=== PATIENT | female | born 1995 | race Caucasian/White ===

== ENCOUNTER 2025-06-24 09:25 | Day surgery (SDC) | payer BC, SELFPAY ==
[2025-06-24] VITALS (8 sets, daily range): BP systolic 108–122; BP diastolic 67–78; PULSE 65–95; RESP 14–18; TEMP 36.1–36.6; O2SAT 99–100; BMI 33.0
[2025-06-24] MEDS: Lactated Ringers 1,000 ML 15 ML IV (09:53)
[2025-06-24 09:55] LABS: Internal QC Validated? YES +Cl - CLEAR BKGD; Pregnancy, Urine Negative Negative; Record Kit Lot#,Urine Preg 0000947241
--- NOTE | 2025-06-24 10:07 | PCM.PRE.AN2 ---
ASA Classification* ASA Classification ASA Classification: 2 Assessment & Plan Anesthesia* Anesthesia Assessment Anesthesia Assessment: Discussed sedation and/or anesthesia options, risks, benefits, and alternatives with patient/parents/legal guardian/POA. Questions invited. The patient/parents/legal guardian/POA seems to understand and agrees to proceed with anesthesia plan. Reviewed the physical assessment, medical history, allergy history and patient home medications list prior to surgery/procedure/anesthetic and documented any changes. Performed airway and anesthesia risk assessments. Anesthesia Type Anesthesia Type: General History Source History Obtained from:: Patient, Chart and Significant Other Anesthesia Focused Assessment* Temperature: 97.9 F Pulse Rate: 68 Blood Pressure: 108/78 Respiratory Rate: 16 Pulse Ox: 100 Oxygen Delivery Method: Room Air Airway Assessment Mouth opens: >3 cm Mallampati Score: II Teeth Condition: Intact Neck Range of motion (ROM): Full ROM Labs Anesthesia Preop lab: CBC CHEMISTRY COAG Urine Test Negative Negative 06/24/25 09:33 06/24/25 Pre-Assessment Diagnosis/Proposed Procedure Planned Operative Procedure(s): EXC OF L UPPER BACK/SHOULDER Anesthesia History Anesthesia History - supervisor line department: Anesthesia History - supervisor line department Hx Hospitalization Yes: PSYCH 04/202506/10/25 10:12 Any Problems With Anesthesia No 06/10/25 10:12 Cholinesterase deficiency No 06/10/25 10:12 You/Your Family Experience No 06/10/25 10:12 fever (hyperthermia) with Relationship Recent Exposure to Contagious No 06/24/25 09:45 Disease Does patient have nerve No 06/10/25 10:12 stimulator Patient instructed to have device shut off --Does patient have Pacemaker No 06/24/25 09:45 or ICD? When Was Last Pacemaker Check QUESTION #4 FULL TEXT: You/Your Family Experience fever (hyperthermia) with Anesthesia Last Oral Intake Last Oral intake: Last Oral Intake NPO since 21:00 06/24/25 09:45 Meds taken in AM with sips of Yes 06/24/25 09:45 water? Meds patient instructed to take am of surgery PONV PONV - supervisor line department: PONV - supervisor line department Female Yes 06/10/25 10:12 HX of Motion Sickness No 06/10/25 10:12 HX of N/V After Surgery No 06/10/25 10:12 Non-Smoker Yes 06/10/25 10:12 Duration of Surgery greater No 06/10/25 10:12 than 60 minutes Number of Risk Factors 2 06/10/25 10:12 PONV Score Moderate Risk 06/10/25 10:12 Height & Weight Height & Weight: Anesthesia: Height & Weight Height 5 ft 5 in 06/24/25 09:45 Weight: 90 kg 06/24/25 09:45 Body Mass Index (BMI) 33.0 06/24/25 09:45 Respiratory Assessment Respiratory Assessment - supervisor line department: Respiratory Tract Infection Hx - supervisor line department Hx Respiratory Tract Infection No 06/10/25 10:12 STOP Sleep Apnea STOP Sleep Apnea - supervisor line department: STOP Sleep Apnea - supervisor line department Hx Hypertension No 06/10/25 10:12 Hx Sleep Apnea No 06/10/25 10:12 CPAP BIPAP Do you snore loudly (louder No 06/10/25 10:12 than talking or can be heard Do you often feel tired/ No 06/10/25 10:12 fatigued/ sleepy during daytime? Has anyone observed you stop No 06/10/25 10:12 breathing during sleep? STOP Results Negative 06/10/25 10:12 QUESTION #5 FULL TEXT : Do you snore loudly (louder than talking or can be heard through closed doors)? 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 Specify any problems Hx of Preganancy in last 3 No 06/10/25 10:12 Months Nurse Filling Out Transfusion VCHRISTIN 06/10/25 10:12 & Questions: Date: 06/10/25 06/10/25 10:12 Time: 10:14 06/10/25 10:12 Patient unable to answer at this time (ie. confused, unrespo /Reproduction History /Reproductive History - supervisor line department: /Reproductive Hx- supervisor line department Hx Now No 06/10/25 10:12 Gestational Age (in weeks): EDC: Hx Hx Para Hx Section SAB No 06/10/25 10:12 Active Medications Active Medications: Current Medications Generic Name Dose Route Start Last Admin Trade Name Freq PRN Reason Stop Dose Admin Cefazolin Sodium 2 gm/ Sodium 110 mls @ 200 mls/hr 06/24/25 11:00 Chloride IV 06/24/25 11:32 INTRAOP ONE Lactated Ringer's 1,000 mls @ 15 mls/hr 06/24/25 09:45 06/24/25 09:53 IV 15 mls/hr .Q48H ADRIAN Administration PFSH Medical History Wears glasses Non-smoker Acid reflux Fatigue Anxiety Depression Home Medications ?Medication ?Instructions ?Recorded ?Last Taken ?Type acetaminophen 650 mg 650 mg PO Q12H PRN pain 05/07/25 Unknown History tablet,extended release (Tylenol 8 Hour) cholecalciferol (vitamin D3) 25 25 mcg PO QDAY 05/07/25 Unknown History mcg (1,000 unit) capsule hydroxyzine HCl 25 mg tablet 25 mg PO BID PRN anxiety 05/07/25 Unknown History lithium carbonate 600 mg capsule 900 mg PO QHS 05/07/25 Unknown History multivitamin 1 tab PO QAM 05/07/25 Unknown History B.coagulan,subtilis 1 bill. 1 tab PO DAILY 06/10/25 Unknown History cell-inulin 1 gram-vit C 15 mg chew tablet (Culturelle Probiotic-Prebiotic) aripiprazole 10 mg tablet 5 mg PO DAILY 06/10/25 Unknown History risankizumab-rzaa 150 mg/mL 150 mg subcut .[id number] 06/10/25 Unknown History subcutaneous pen injector (Skyrizi) Allergy/AdvReac Type Severity Reaction Status Date / Time No Known Allergies Allergy Verified 06/24/25 09:45 Family History Aunt CVA (cerebral vascular accident) Aunt Thyroid disorder Autoimmune disease Father Heart disease Hypertension Mother Hypertension Surgical History Hx of wisdom tooth extraction H/O skin graft Social History Smoking Status: Never smoker alcohol intake: current alcohol intake frequency: a few times a month Review of Systems (Anesthesia) ROS Narrative System reviewed and no additional complaints, except as documented.
--- NOTE | 2025-06-24 10:49 | PCM.HP.STD ---
HPI - General General Date of Admission: 06/24/25 Date of Service: 06/24/25 Chief Complaint: Sebaceous cyst of the back HPI Narrative MARIBEL ARAMBULA, is a 29 F who presents for elective excision of a left upper back sebaceous cyst [facility] Medical History Wears glasses Non-smoker Acid reflux Fatigue Anxiety Depression Home Medications ?Medication ?Instructions ?Recorded ?Last Taken ?Type acetaminophen 650 mg 650 mg PO Q12H PRN pain 05/07/25 Unknown History tablet,extended release (Tylenol 8 Hour) cholecalciferol (vitamin D3) 25 25 mcg PO QDAY 05/07/25 Unknown History mcg (1,000 unit) capsule hydroxyzine HCl 25 mg tablet 25 mg PO BID PRN anxiety 05/07/25 Unknown History lithium carbonate 600 mg capsule 900 mg PO QHS 05/07/25 Unknown History multivitamin 1 tab PO QAM 05/07/25 Unknown History B.coagulan,subtilis 1 bill. 1 tab PO DAILY 06/10/25 Unknown History cell-inulin 1 gram-vit C 15 mg chew tablet (Culturelle Probiotic-Prebiotic) aripiprazole 10 mg tablet 5 mg PO DAILY 06/10/25 Unknown History risankizumab-rzaa 150 mg/mL 150 mg subcut .[id number] 06/10/25 Unknown History subcutaneous pen injector (Skyrizi) Allergy/AdvReac Type Severity Reaction Status Date / Time No Known Allergies Allergy Verified 06/24/25 09:45 Family History Aunt CVA (cerebral vascular accident) Aunt Thyroid disorder Autoimmune disease Father Heart disease Hypertension Mother Hypertension Surgical History Hx of wisdom tooth extraction H/O skin graft Social History Smoking Status: Never smoker alcohol intake: current alcohol intake frequency: a few times a month Vital Signs Vital Signs Vital Signs: 06/24/25 09:45 06/24/25 09:45 06/24/25 10:08 Temperature 97.9 F 97.9 F Temperature Source Temporal Pulse Rate 68 68 Respiratory Rate 16 16 Respiratory Pattern Normal Blood Pressure 108/78 108/78 Blood Pressure Mean 88 Blood Pressure Source Monitor Blood Pressure Position Semi-Fowlers Blood Pressure Location Left Arm Pulse Ox 100 100 Oxygen Delivery Method Room Air Room Air Weight Weight: 198 lb 6.656 oz Body Mass Index (BMI) 33.0 Physical Exam Const alert, oriented x3 and no apparent distress Results Lab / Micro Data Labs: Laboratory Results - last 24 hr 06/24/25 09:33: Urine Test Negative Assessment & Plan Assessment/Plan (1) Cyst: PLAN: Plan Patient is a 29-year-old female with recurring sebaceous cyst involving her left upper back. She wished to have this excised but would prefer to have this performed in the operating room versus the office. We discussed the details of the planned procedure and she wishes to proceed. This will begin momentarily
--- NOTE | 2025-06-24 11:00 | CYST_PTH ---
PATIENT: MARIBEL ARAMBULA LOC: [facility] [place] U#:[id number] AGE/SX: 29/F ROOM: RE06/24/[address]: Dr. Navdeep Zepeda MD : 1995 BED: DIS: 06/24/2025 SPEC #: [id number] RECD: 06/24/25 14:13 STATUS: VAL REMargarita #: [id number] ANU: 06/24/25 11:[address]: Navdeep Zepeda DEPT: SURGICAL PATHOLOGY RECD BY: Maxx Dias ENTERED: 06/24/25 14:40 SP TYPE: Cyst OT DR: Geno Primary Care Phys Tissues: A - CYST Procedures: Surgery Specimen Level III HEADER OPERATION: Excision sebaceous cyst left shoulder PRE-OP DIAGNOSIS: Sebaceous cyst TISSUE SUBMITTED: A- Sebaceous cyst MICROSCOPIC DIAGNOSIS A. Skin, left shoulder, cyst, excision: - Epidermal inclusion cyst. MICROSCOPIC DESCRIPTION Slides are reviewed. GROSS DESCRIPTION A. Received in formalin labeled with the patient's name and date of . Designated as sebaceous cyst is a skin and soft tissue excision devoid of orientation, collectively measuring 3.1 x 2.4 x 1.0 cm. Sectioning reveals ugarte-yellow fibrofatty cut surfaces and a 0.8 x 0.8 x 0.5 cm subcutaneous cyst containing sebaceous like material. Flexible Babysitter sections are submitted in [address] 06/24/2025 CPT:49697
[2025-06-24] MEDS: fentaNYL 100 MCG/2 ML Ampul IV (12:11)
[2025-06-24] MEDS: Midazolam 2 MG/2 ML Syringe IV (12:11)
[2025-06-24] MEDS: Cefazolin 1 GM/5 ML Vial 2 GM IV (12:12)
[2025-06-24] MEDS: Lidocaine 1% (5 ml sdv) 5 ML Vial IV (12:12)
[2025-06-24] MEDS: Bupiv/Epi 0.25% 30 ML Vial (12:38)
--- NOTE | 2025-06-24 12:46 | EX.PCM.DISCH ---
Discharge Instructions Diet Discharge Diet: Light diet - advance as tolerated Activity Discharge Activity: Return to Normal Activity and May Shower May shower in (days): 1 Ice area for (Minutes): 30 Dressing / Incision Call your doctor if your incision/area has: Continuous Slow Oozing, Sudden Increased Bleeding, Increased Pain/ Swelling, Increased Redness, Foul Smelling Discharge and Swelling at the incision site Call your doctor if you observe: Fever of 101 or Higher Cleanse incision/area with: Soap & Water Follow Up Care Please Follow Up With: Navdeep Zepeda MD When: 2 weeks Test Results: Test results from this visit will be discussed in further detail at your follow-up appointment, if applicable. Discharge Plan Admission Primary Reason for Your Visit: Excision of sebaceous cyst Attending Provider: Navdeep Zepeda Primary Care Provider: Care Physician,Geno Primary Instructions Print Language: [place] Discharge Orders/Prescriptions Prescriptions: Continued lithium carbonate 600 mg capsule 900 mg PO QHS hydroxyzine HCl 25 mg tablet 25 mg PO BID PRN (Reason: anxiety) cholecalciferol (vitamin D3) 25 mcg (1,000 unit) capsule 25 mcg PO QDAY multivitamin Tablet 1 tab PO QAM acetaminophen [Tylenol 8 Hour] 650 mg tablet extended release 650 mg PO Q12H PRN (Reason: pain) aripiprazole 10 mg tablet 5 mg PO DAILY Culturelle Probiotic-Prebiotic 1 billion cell- 1 gram-15 mg tablet,chewable 1 tab PO DAILY Skyrizi 150 mg/mL pen injector 150 mg subcut .[id number] Referrals / Follow Up: Care Physician,No Primary [Primary Care Provider] - Disposition Disposition (needs filled in before D/C Order can be placed): Home, Self Care
--- NOTE | 2025-06-24 12:51 | EX.PCM.DISCH ---
Discharge Instructions Diet Discharge Diet: Light diet - advance as tolerated Activity May shower in (days): 1 Ice area for (Minutes): 30 Dressing / Incision Call your doctor if your incision/area has: Continuous Slow Oozing, Sudden Increased Bleeding, Increased Pain/ Swelling, Increased Redness, Foul Smelling Discharge and Swelling at the incision site Call your doctor if you observe: Fever of 101 or Higher Cleanse incision/area with: Soap & Water Follow Up Care Please Follow Up With: Navdeep Zepeda MD Test Results: Test results from this visit will be discussed in further detail at your follow-up appointment, if applicable. Discharge Plan Admission Primary Reason for Your Visit: Excision of sebaceous cyst Attending Provider: Navdeep Zepeda Primary Care Provider: Care Physician,Geno Primary Instructions Print Language: [place] Discharge Orders/Prescriptions Prescriptions: Continued lithium carbonate 600 mg capsule 900 mg PO QHS hydroxyzine HCl 25 mg tablet 25 mg PO BID PRN (Reason: anxiety) cholecalciferol (vitamin D3) 25 mcg (1,000 unit) capsule 25 mcg PO QDAY multivitamin Tablet 1 tab PO QAM acetaminophen [Tylenol 8 Hour] 650 mg tablet extended release 650 mg PO Q12H PRN (Reason: pain) aripiprazole 10 mg tablet 5 mg PO DAILY Culturelle Probiotic-Prebiotic 1 billion cell- 1 gram-15 mg tablet,chewable 1 tab PO DAILY Skyrizi 150 mg/mL pen injector 150 mg subcut .[id number] Referrals / Follow Up: Care Physician,No Primary [Primary Care Provider] - Disposition Disposition (needs filled in before D/C Order can be placed): Home, Self Care
--- NOTE | 2025-06-24 12:56 | PCM.OPRPT ---
Problems Associated Problem List Diagnoses (1) Cyst: Procedures Integumentary 114x: 50636 Exc [id number]-[id number] b9+dl 1.1-2 Operative Report (Standard) Operative Information Date of Procedure: 06/24/25 Pre-Operative Diagnosis: Sebaceous cyst of left upper back Post-Operative Diagnosis: Same Surgery/Procedure Performed: Excision of sebaceous cyst of left upper back warehouse sorter: Yes Biomedical Analytical Scientist: Melanie Hernandez Tasks completed by reference library assistant: Closing and Retracting Additional assistant statistician?: No Type of Anesthesia: General RN Documented Start/Stop Times: Operation Date: 06/24/25 11:00 Case Time Into Pre-Op 06/24/25 09:32 Out of Pre-Op 06/24/25 12:05 Anesthesia Start 06/24/25 12:06 Into Room 06/24/25 12:06 Procedure Start 06/24/25 12:27 Procedure End 06/24/25 12:46 Anesthesia End 06/24/25 12:53 Out of Room 06/24/25 12:53 Procedure Start Time: 12:27 Procedure Stop Time: 12:46 Select all DRAINS/GRAFTS/IMPLANTS that apply: None Estimated Blood Loss: Minimal Specimen collected: Yes Description of specimen(s) removed: Sebaceous cyst Description of surgery: The patient is a 29-year-old female recently seen through the office with a sebaceous cyst involving the left upper back. This was I&D and she was placed on antibiotics. It was recommended that we excise this sebaceous cyst so that did not return. We agreed that this would be best performed in the operating room. We discussed the details of the planned procedure including the risks benefits and alternatives. She wished to proceed The patient was brought to the operating today following informed consent. She was placed on the operative table and LMA general anesthesia was induced. Once adequately anesthetized she was rolled in a lateral decubitus position. Appropriate padding and positioning was incorporated. The region of the left upper back was prepped and draped in the usual sterile manner. It was marked preoperatively. Local anesthetic was infiltrated into the vicinity. An ellipse incision was made around the lesion. Bovie electrocautery was then used to dissect down through subcutaneous tissue around the residual sebaceous cyst capsule and contents. The wound was then copiously irrigated. Hemostasis was excellent. The wound was then closed with 2-0 Vicryl and 4-0 Vicryl. Skin glue was applied as dressing. She was awakened from anesthesia and taken recovery in good condition. The residual sebaceous cyst measured about 1.5 cm Surgical Findings: See operative note Complications Complications: No Admit VTE Documentation VTE Present on Admission: No VTE Mechan Device Prophylaxis: SCD's VTE Pharm Prophylaxis ordered?: No Reason prophylaxis not ordered: Treatment Not Indicated
--- NOTE | 2025-06-24 13:00 | PCM.POST.ANE ---
Anesthesia: Postop Eval I Current Vital Signs Temperature: 97 F Pulse Rate: 95 Blood Pressure: 119/67 Respiratory Rate: 16 Pulse Ox: 100 Oxygen Delivery Method: Room Air Assessment Airway patent: Yes Spontaneous unlabored respirations: Yes Mental status: Awake and Calm nausea: No Vomiting: No Anesthesia Complication: No Fluid Hydration Crystalloid volume administer (ml): 800 Total IV fluid infused: 800 Progress Note Anesthesia document: Postop Eval 1 completed: Yes
--- NOTE | 2025-06-24 15:35 | POSTOPAN2_ITS ---
Anesthesia Postop Eval I Sum Postop Eval Completion status Anesthesia document: Postop Eval 1 completed: Yes Anesthesia Postop Eval I Summary Anesthesia Postop Eval I Summary: Anesthesia Postop Eval I: Assessment Summary Airway patent Yes 06/24/25 13:01 PASSENGER AGENT.JDEF Spontaneous unlabored Yes 06/24/25 13:01 PASSENGER AGENT.JDEF respirations Mental status Awake,Calm 06/24/25 13:01 PASSENGER AGENT.JDEF nausea No 06/24/25 13:01 PASSENGER AGENT.JDEF Vomiting No 06/24/25 13:01 PASSENGER AGENT.JDEF Anesthesia Postop Eval I: Fluid Summary Crystalloid volume administer 800 06/24/25 13:01 PASSENGER AGENT.JDEF (ml) Colloids volume administered ( ml) Blood Product volume administered (ml) Total IV fluid infused 800 06/24/25 13:01 PASSENGER AGENT.JDEF Anesthesia Postop Eval I: Summary Notes Anesthesia Complication No 06/24/25 13:01 PASSENGER AGENT.JDEF Anesthesia Complication Comment: Post-operative progress note Anesthesia: Postop Eval II Evaluation Mental status: Awake Pain Level: 1 nausea: No Vomiting: No
--- NOTE | 2025-06-24 15:35 | PCM.POSTANE2 ---
Anesthesia Postop Eval I Sum Postop Eval Completion status Anesthesia document: Postop Eval 1 completed: Yes Anesthesia Postop Eval I Summary Anesthesia Postop Eval I Summary: Anesthesia Postop Eval I: Assessment Summary Airway patent Yes 06/24/25 13:01 VIDEO GAMES MECHANIC.JDEF Spontaneous unlabored Yes 06/24/25 13:01 VIDEO GAMES MECHANIC.JDEF respirations Mental status Awake,Calm 06/24/25 13:01 VIDEO GAMES MECHANIC.JDEF nausea No 06/24/25 13:01 VIDEO GAMES MECHANIC.JDEF Vomiting No 06/24/25 13:01 VIDEO GAMES MECHANIC.JDEF Anesthesia Postop Eval I: Fluid Summary Crystalloid volume administer 800 06/24/25 13:01 VIDEO GAMES MECHANIC.JDEF (ml) Colloids volume administered ( ml) Blood Product volume administered (ml) Total IV fluid infused 800 06/24/25 13:01 VIDEO GAMES MECHANIC.JDEF Anesthesia Postop Eval I: Summary Notes Anesthesia Complication No 06/24/25 13:01 VIDEO GAMES [email or web address].JDEF Anesthesia Complication Comment: Post-operative progress note Anesthesia: Postop Eval II Evaluation Mental status: Awake Pain Level: 1 nausea: No Vomiting: No
== END 2025-06-24 13:52 | disposition home or self-care (01) ==
LOC: SDC 09:30 → AC 09:31
PROVIDERS: Anesthesiology; Referring Provider Surgery; Visit Provider Surgery
PROC: (CPT 11402; principal; 2025-06-24 10:45)
DX: L72.0 Epidermal cyst (principal); K21.9 Gastro-esophageal reflux disease without esophagitis
CPT/HCPCS: 11402; 00300; 81025; 88304; J2405

== ENCOUNTER → 2025-10-02 | Outpatient (CLI) | payer BC, SELFPAY ==
[2025-10-02 12:01] LABS: Lithium 1.05 mmol/L (0.60-1.20)
== END | disposition home or self-care (01) ==
LOC: MTLAB 07:42
PROVIDERS: Referring Provider Physician Assistant; Visit Provider Physician Assistant
DX: Z79.899 Other long term (current) drug therapy (principal)
CPT/HCPCS: 36415; 80178

== ENCOUNTER → 2025-10-15 | Outpatient (CLI) | payer OTHER, SELFPAY ==
[2025-10-15 10:06] LABS: Hematocrit 42.5 % (37-47); Hemoglobin 13.9 g/dL (12.0-15.0); Mean Corp Hgb Conc 32.7 g/dL (32-36); Mean Corpuscular Volume 88.5 fL (81-99); Mean Platelet Vol. 10.8 fl (6.2-12.0); Platelet Count 240 K/mm3 (150-450); RBC Distribution Width CV 12.5 % (11.6-14.6); RBC Distribution Width SD 41.1 fl (35.1-43.9); Red Blood Count 4.80 M/mm3 (4.2-5.4); White Blood Count 6.5 K/mm3 (4.4-11.0)
[2025-10-15 10:31] LABS: AST(SGOT) 14 U/L (<=31); Alanine Aminotransfer ALT/SGPT 11 U/L (<=34); Albumin, Serum 4.3 g/dL (3.5-5.0); Alkaline Phosphatase 57 U/L (35-104); Anion Gap 9 (5-15); BUN 11 mg/dL (4-19); BUN/Creat Ratio 14.7 RATIO (10-20); Calcium,Total 9.8 mg/dL (7.6-11.0); Carbon Dioxide 26.0 mmol/L (21.0-32.0); Chloride 105 mmol/L (98-108); Globulin 2.7 g/dL (2.2-4.2); Glucose 102 mg/dL (70-99); Potassium 4.7 mmol/L (3.3-5.1)
[2025-10-15 10:39] LABS: Lithium 0.89 mmol/L (0.60-1.20)
== END | disposition home or self-care (01) ==
LOC: MTLAB 07:53
PROVIDERS: Referring Provider Physician Assistant; Visit Provider Physician Assistant
DX: Z51.81 Encounter for therapeutic drug level monitoring (principal); Z79.899 Other long term (current) drug therapy
CPT/HCPCS: 36415; 80053; 80178; 84443; 85027